=== PATIENT | male | born 1940 | race Caucasian/White ===

== ENCOUNTER 2018-05-09 09:42 | Outpatient (CLI) | payer MEDICARE ==
--- NOTE | 2018-05-09 10:57 | RAD ---
TWO VIEWS OF THE CHEST: DATE: 05/09/18. COMPARISON: None available. HISTORY: Short of breath. FINDINGS: Midline sternotomy wires are present. There is increased linear density horizontally oriented within the right lung apex, suggesting scar a nd/or volume loss. Bilateral small pleural effusions are noted, left greater than right. Midline st ernotomy wires are present. A dual-lead transvenous pacing device is in place inserted via left subc lavian approach. There is hazy increased density in the medial left base which could represent infil trate, volume loss, or scar. IMPRESSION: Chronic-appearing findings noted bilaterally. If there are acute symptoms which persist, followup im aging advised. POS: KIKI
== END 2018-05-09 09:43 | disposition home or self-care (01) ==
LOC: RAD 09:42
PROVIDERS: ATTEND Internal Medicine Critical Care Medicine
DX: R06.00 Dyspnea, unspecified (principal)
CPT/HCPCS: 71046

== ENCOUNTER 2018-05-24 14:34 | Outpatient (CLI) | payer MEDICARE ==
--- NOTE | 2018-05-24 15:31 | RAD ---
CHEST 2 VIEWS: HISTORY: Dyspnea. COMPARISON: 05/09/18. FINDINGS: Cardiac silhouette remains predominantly obscured by bilateral pleural fluid, left greater than right , and scarring at each base. Parenchymal scarring is apparent throughout each lung, most notably at the right apex. Mediastinum is midline with aortic calcification, postoperative changes, and a dual- lead left subclavian cardiac electronic device. Lung markings extend beyond an oblique density at th e right apex and pneumothorax. IMPRESSION: Bilateral pleural fluid, significant scarring, and other findings are stable. POS: KIKI
== END 2018-05-24 14:35 | disposition home or self-care (01) ==
LOC: RAD 14:34
PROVIDERS: ATTEND Internal Medicine Critical Care Medicine
DX: R06.00 Dyspnea, unspecified (principal); J81.1 Chronic pulmonary edema; J98.4 Other disorders of lung
CPT/HCPCS: 71046

== ENCOUNTER 2018-06-13 08:00 | Outpatient (CLI) | payer MEDICARE | END 2018-06-13 08:01 | disposition home or self-care (01) | LOC: BICCT 08:00 | PROVIDERS: ATTEND Internal Medicine Critical Care Medicine | DX: J90 Pleural effusion, not elsewhere classified (principal); J93.9 Pneumothorax, unspecified; J98.11 Atelectasis; J98.4 Other disorders of lung; K80.20 Calculus of gallbladder without cholecystitis without obstruction | CPT/HCPCS: 71250 ==

== ENCOUNTER 2018-06-15 08:23 | Outpatient (CLI) | payer MEDICARE | END 2018-06-15 08:24 | disposition home or self-care (01) | LOC: CP 08:23 | PROVIDERS: ATTEND Internal Medicine Critical Care Medicine | DX: R06.00 Dyspnea, unspecified (principal) | CPT/HCPCS: 36415; 82533; 94060; 94727; 94729 ==

== ENCOUNTER 2018-07-20 10:44 | Outpatient (CLI) | payer MEDICARE | END 2018-07-20 10:45 | disposition home or self-care (01) | LOC: CP 10:44 | PROVIDERS: ATTEND Internal Medicine Critical Care Medicine | DX: R06.09 Other forms of dyspnea (principal) | CPT/HCPCS: 94060; 94727; 94729 ==